=== PATIENT | male | born 1990 | race Caucasian/White ===

== ENCOUNTER 2017-03-28 17:49 | Emergency (ER) | payer OTHER ==
[2017-03-28 17:57] VITALS: BP 128/77; PULSE 97; RESP 16; TEMP 97.8; O2SAT 100
--- NOTE | 2017-03-28 19:09 | ED PDOC ---
HPI: Psych/Substance Abuse Time Seen by Provider: 03/28/17 18:07 Chief Complaint (Nursing): Psychiatric Evaluation Chief Complaint (Provider): Psychiatric Evaluation History Per: Patient History/Exam Limitations: no limitations Onset/Duration Of Symptoms: Days (x1) Current Symptoms Are (Timing): Still Present Suicide/Self Injury Attempted (Context): None Associated Symptoms: Depression, Suicidal Thoughts Additional Complaint(s): 26 year old male presents to ED with complaints of suicidal ideation x1 day and has no past medical history. Notes that he broke up with his girlfriend x2 days ago and started feeling depressed and suicidal yesterday. States that when he looks at the [place] he wants to jump in and kill himself. Contacted suicide hotline today, which instructed him to present to ED. (-) homicidal ideation, hallucination, or physical complaints. PCP: Non H Past Medical History Reviewed: Historical Data, Nursing Documentation, Vital Signs Vital Signs: Last Vital Signs Temp 97.8 F 03/28/17 17:54 Pulse 97 H 03/28/17 17:54 Resp 16 03/28/17 17:54 BP 128/77 03/28/17 17:54 Pulse Ox 100 03/28/17 17:54 - Medical History PMH: No Chronic Diseases - Surgical History Surgical History: Cholecystectomy - Family History Family History: States: No Known Family Hx - Living Arrangements Living Arrangements: With Friends/Others - Social History Drugs: Denies - Allergies Allergies/Adverse Reactions: Allergies Allergy/AdvReac Type Severity Reaction Status Date / Time No Known Allergies Allergy Verified 03/28/17 17:54 Review of Systems ROS Statement: Except As Marked, All Systems Reviewed And Found Negative Psych: Positive for: Depression, Suicidal ideation. Negative for: Psychosis ((- ) hallucinations), Other ((-) homicidal ideation) Physical Exam - Reviewed Nursing Documentation Reviewed: Yes Vital Signs Reviewed: Yes - Physical Exam Appears: Positive for: Well, Non-toxic, No Acute Distress Skin: Positive for: Normal Color, Warm, Dry Eye Exam: Positive for: Normal appearance, EOMI, PERRL Neck: Positive for: Normal, Painless ROM, Supple Cardiovascular/Chest: Positive for: Regular Rate, Rhythm. Negative for: Murmur Respiratory: Positive for: Normal Breath Sounds. Negative for: Respiratory Distress Gastrointestinal/Abdominal: Positive for: Soft. Negative for: Tenderness Extremity: Positive for: Normal ROM. Negative for: Deformity Neurologic/Psych: Positive for: Alert, Oriented. Negative for: Motor/Sensory Deficits - ECG O2 Sat by Pulse Oximetry: 100 (RA) Pulse Ox Interpretation: Normal - Progress ED Course And Treament: Pt. evaluated by crisis and cleared pt. for discharge as per Dr. Rivero. On re-evaluation, pt. denies SI/HI, hallucinations. Medical Decision Making Medical Decision Makin Initial impression: suicidal ideation Initial plan: * Crisis eval * UDrug screen * 1:1 OBS Scribe Attestation: Documented by Leonora Arteaga, acting as a scribe for Aldo Snow PA-C. Provider Scribe Attestation: All medical record entries made by the Scribe were at my direction and personally dictated by me. I have reviewed the chart and agree that the record accurately reflects my personal performance of the history, physical exam, medical decision making, and the department course for this patient. I have also personally directed, reviewed, and agree with the discharge instructions and disposition. Disposition - Clinical Impression Clinical Impression: Depression - Patient ED Disposition Is Patient to be Admitted: No - Disposition Disposition: Routine/Home Disposition Time: 20:12 Condition: STABLE Instructions: Depression (ED) Forms: [employer] (Faroese) Print Language: NAMIBIAN
[2017-03-28 20:31] LABS: BARBITURATES, UR NEGATIVE (NEGATIVE); BENZODIAZEPINES, UR NEGATIVE (NEGATIVE); OPIATES, UR NEGATIVE (NEGATIVE); PHENCYCLIDINE, UR NEGATIVE (NEGATIVE)
== END 2017-03-28 20:26 | disposition home or self-care (01) ==
LOC: H.ER 17:49
DX: F32.9 Major depressive disorder, single episode, unspecified (principal); Z00.8 Encounter for other general examination